=== PATIENT | female | born 1955 | race Caucasian/White ===

== ENCOUNTER 2021-01-24 19:57 | Emergency (ER) | payer SELFPAY ==
[~2021-01-24] VITALS: Ht 172.7 cm; Wt 79.0 kg
[2021-01-24] MEDS ORDERED: SODIUM CHLORIDE 0.9% 1,000 ML IV ONE (21:30)
[2021-01-24 21:54] LABS: BASOPHILS % 0.1 % (0.0-2.0); EOSINOPHILS % 0.1 % (0.0-5.0); HEMATOCRIT. 32.2 % (36.0-48.0); HEMOGLOBIN. 10.4 g/dL (12.0-16.0); LYMPHOCYTES % 7.3 % (20.0-50.0); MEAN CORPUSCULAR HEMOGLOBIN 29.8 pg (28.0-32.0); MEAN CORPUSCULAR VOLUME 91.8 fL (81.0-99.0); MONOCYTES % 6.5 % (2.0-8.0); RED CELL DISTRIBUTION WIDTH 18.4 % (11.6-14.6)
[2021-01-24 21:56] LABS: CLARITY URINE CLOUDY (CLEAR); COLOR URINE ORANGE (YELLOW); KETONES URINE TRACE (NEGATIVE); LEUKOCYTE ESTERASE URINE 1+ (NEGATIVE); NITRITE URINE POSITIVE (NEGATIVE); OCCULT BLOOD URINE NEGATIVE (NEGATIVE); PROTEIN URINE TRACE (NEGATIVE); SPECIFIC GRAVITY URINE 1.026 (1.005-1.030)
[2021-01-24 21:59] LABS: CHLORIDE 110 mEq/L (98-107)
[2021-01-24 22:04] LABS: ETHANOL BLOOD < 10 mg/dL; INR 1.8; PARTIAL THROMBOPLASTIN TIME 36.8 sec (23.4-31.0); PROTHROMBIN TIME 18.2 sec (9.6-11.0)
[2021-01-24] MEDS ORDERED: DEXTROSE 50% WATER 50ML SYRINGE IV ONE ×3 (22:15→23:55)
[2021-01-24 22:29] LABS: *AMPHETAMINES SCREEN URINE NEGATIVE (NEGATIVE); *BENZODIAZEPINES SCREEN URINE NEGATIVE (NEGATIVE); *COCAINE SCREEN URINE NEGATIVE (NEGATIVE); OPIATES URINE SCREEN NEGATIVE (NEGATIVE)
[2021-01-24 22:30] LABS: CANNABINOID URINE SCREEN NEGATIVE (NEGATIVE); METHADONE URINE SCREEN PRESUMTIVE POSITIVE (NEGATIVE); PHENCYCLIDINE URINE SCREEN NEGATIVE (NEGATIVE)
[2021-01-24] MEDS ORDERED: CEFTRIAXONE 1 G PREMIX 50 ML IV ONE (22:30)
[2021-01-24] MEDS ORDERED: VANCOMYCIN 1 G PREMIX 200 ML IV ONE (22:30)
[2021-01-24 22:31] LABS: *BARBITURATES SCREEN URINE NEGATIVE (NEGATIVE)
[2021-01-24 22:43] LABS: MEAN PLATELET VOLUME 8.6 fl (7.4-10.4); PLATELET 148 x1000/uL (130-400)
[2021-01-24 23:00] VITALS: BP 139/81
[2021-01-24] MEDS ORDERED: SODIUM BICARBONATE 8.4% 1 MEQ/ML 50ML SYR IV ONE (23:55)
[2021-01-24] MEDS ORDERED: CALCIUM CHLORIDE 1GM/10ML SYR IV ONE (23:55)
[2021-01-24] MEDS ORDERED: EPINEPHRINE 0.1MG/ML (1:10,000) 10ML SYR ONE (23:55)
== END 2021-01-25 05:10 | disposition expired ==
LOC: ER 19:57
DX: A41.9 Sepsis, unspecified organism (principal); R65.21 Severe sepsis with septic shock; R18.8 Other ascites; Z20.822 Contact with and (suspected) exposure to COVID-19; J18.9 Pneumonia, unspecified organism; E87.70 Fluid overload, unspecified; E16.2 Hypoglycemia, unspecified; N39.0 Urinary tract infection, site not specified; K74.69 Other cirrhosis of liver; G95.19 Other vascular myelopathies; D64.9 Anemia, unspecified; K21.9 Gastro-esophageal reflux disease without esophagitis; M48.54XA Collapsed vertebra, not elsewhere classified, thoracic region, initial encounter for fracture; K44.9 Diaphragmatic hernia without obstruction or gangrene; M19.90 Unspecified osteoarthritis, unspecified site; Z86.73 Personal history of transient ischemic attack (TIA), and cerebral infarction without residual deficits
CPT/HCPCS: 31500; 36415; 70450; 71045; 74176; 80053; 80305; 80320; 81003; 82140; 82962; 83605; 83690; 84484; 85025; 85610; 85730; 87040; 87086; 93005; 96361; 96365; 96375; 99291; C9803; J0696; J3370; J3490; J7030; U0003; G0480